=== PATIENT | female | born 1945 | race Caucasian/White ===

== ENCOUNTER → 2024-06-13 07:19 | Outpatient (CLI) | payer MEDICARE, SELFPAY | PROVIDERS: Visit Provider Physician Assistant Surgical | DX: R30.0 Dysuria (principal) | CPT/HCPCS: 87077; 87086; 87186 ==

== ENCOUNTER → 2024-07-11 14:11 | Outpatient (CLI) | payer OTHER, SELFPAY ==
--- NOTE | 2024-07-11 14:16 | DI.RAD.S_ITS ---
PROCEDURE: XR SHOULDER LT MIN 2V INDICATIONS: left shoulder pain, s/p fall TECHNIQUE: 3 views of the shoulder were acquired. COMPARISON: None. FINDINGS: Bones: No fractures or dislocations. Moderate acromioclavicular and glenohumeral joint degeneration. No suspicious bony lesions. Visualized ribs appear intact. Soft tissues: No suspicious soft tissue calcifications. IMPRESSION: No acute osseous abnormality. If pain persists with conservative management, consider repeat x-ray in 10-14 days or cross-sectional imaging. Dictated by: Yahir Cobian M.D. on 07/11/2024 at 14:40 Approved by: Yahir Cobian M.D. on 07/11/2024 at 14:46
== END ==
LOC: RAD 14:16
PROVIDERS: Referring Provider Family Medicine; Visit Provider Family Medicine
DX: M25.512 Pain in left shoulder (principal); M19.012 Primary osteoarthritis, left shoulder
CPT/HCPCS: 73030

== ENCOUNTER 2024-07-25 07:33 | Emergency (ER) | payer OTHER, SELFPAY ==
[2024-07-25] VITALS (8 sets, daily range): BP systolic 132–177; BP diastolic 69–81; PULSE 59–65; RESP 16–34; TEMP 36.6; O2SAT 99–100; BMI 18.0
[2024-07-25 07:58] LABS: Add Manual Diff / Slide Review NO; Basophils Absolute Auto 0 /uL (0-100); Eosinophils Absolute Auto 100 /uL (0-450); Hematocrit 37.4 % (36-46); Hemoglobin 12.8 g/dL (12.0-16.0); Lymphocytes Absolute Auto 800 /uL (1100-4500); Lymphocytes Percent Auto 31.8 % (25-40); Mean Corpuscular HGB Conc 34.3 % (30-36); Mean Corpuscular Volume 96.3 fL (80-100); Monocytes Absolute Auto 200 /uL (0-900); Neutrophils Absolute Auto 1500 /uL (1500-7000); Neutrophils Percent Auto 55.2 % (50-75); Platelet Count 140 X10^3/uL (150-400); Red Blood Cell Count 3.88 X10^6/uL (4.0-5.2); Red Cell Distribution Width 13.1 % (11.6-14.8); White Blood Cell Count 2.7 X10^3/uL (4.5-11.0)
[2024-07-25 08:03] LABS: Prothrombin Time 11.3 SECONDS (9.4-12.5)
[2024-07-25 08:09] LABS: Alanine Aminotransferase 43 IU/L (<35); Albumin 4.4 g/dL (3.5-5.0); Albumin Globulin Ratio 1.6 (1.0-2.8); Alkaline Phosphatase 49 U/L (38-126); Aspartate Aminotransferase 53 IU/L (14-36); BUN Creatinine Ratio 19.2 (6-22); Bilirubin Total 0.6 mg/dL (0.2-1.3); Blood Urea Nitrogen 15 mg/dL (7-17); Calcium 9.8 mg/dL (8.4-10.2); Carbon Dioxide 29 mmol/L (22-32); Chloride 103 mmol/L (98-107); Estimated Glomerular Filt Rate > 60 mL/min (>60); Globulin 2.7 g/dL (1.7-4.1); Glucose 98 mg/dL (80-110); HEMOLYSIS < 15 (0-50); Lipase 84 U/L (23-300); Potassium 3.4 mmol/L (3.4-5.1); Sodium 139 mmol/L (137-145); Total Protein 7.1 g/dL (6.3-8.2)
--- NOTE | 2024-07-25 08:14 | ED_ITS ---
HPI - Abdominal Pain General Chief Complaint: Abdominal Pain Stated Complaint: constipation, weight loss, sent by [facility] Time Seen by Provider: 07/25/24 07:35 History of Present Illness HPI narrative: this is a 79-year-old female with a history of osteoporosis osteoarthritis and hypothyroidism. She is complaining of upper abdominal pain that she describes as pressure and no bowel movement for 3 days. States that she does not have a history of chronic constipation but recently has developed constipation with hard stool. Also says that over the last month she has had an unintentional 10 lb weight loss. No changes in stool caliber and no GI bleeding. Recently has had decreased activity secondary to injuries. No previous abdominal surgeries remote history of colonoscopy that by her report did not have any concerning findings. Has not used any laxatives. No recent medication changes no medications that would be expected to cause constipation. No previous surgical history Related Data Home Medications Medication Instructions Recorded Confirmed levothyroxine 125 mcg tablet 0.125 mg PO QAM #30 tabs 02/03/16 07/25/24 (Synthroid) alendronate [Fosamax] PO 07/11/24 07/25/24 alendronate 70 mg tablet mg PO 07/25/24 07/25/24 levothyroxine 100 mcg tablet mcg PO DAILY 07/25/24 07/25/24 Previous Rx's Medication Instructions Recorded omeprazole 20 mg capsule,delayed 20 mg PO DAILY #30 caps 07/25/24 release sennosides 8.6 mg-docusate sodium 1 tab-cap PO BID #30 tabs 07/25/24 50 mg tablet (Senokot-S) Allergies Allergy/AdvReac Type Severity Reaction Status Date / Time No Known Drug Allergies Allergy Verified 07/25/24 07:31 Patient History Social History Smoking Status: Never smoker Smoking Status: Never smoker Exam Narrative Exam Narrative: thin female appears to be in no distress Initial Vital Signs Initial Vital Signs: Vital Signs Pulse Rate 64 07/25/24 07:40 Pulse Oximetry 100 07/25/24 07:40 Other: on rectal exam there is formed stool in the vault, not palpable if fecal impaction, brown but strongly guaiac positive Course Orders Ordered: ED Orders 07/25/24 07:45 EKG-12 Lead Stat 07/25/24 07:50 Complete Blood Count AUTO DIFF Stat Comprehensive Metabolic Panel Stat Lipase Stat Prothrombin Time INR Stat TSH [Thyroid Stimulating Hormone] Stat 07/25/24 08:24 CT abdomen pelvis w con Stat Ondansetron HCl (Ondansetron 4 Mg/2 Ml Inj) 4 mg IV NOW PRN PRN Reason: Nausea And Vomiting Ondansetron HCl (Ondansetron 4 Mg Odt) 4 mg PO NOW PRN PRN Reason: Nausea And Vomiting Discontinued Medications Sodium Biphosphate/Sodium Phosphate (Fleets Enema) 1 each ID NOW ONE Stop: 07/25/24 08:06 Last Admin: 07/25/24 09:23 Dose: 1 each Documented By: CTS Reevaluation(s) Reevaluation #1: did not have results with enema, given her overall reassuring presentation I do not think that we need to be more aggressive today. Vital Signs Vital signs: Vital Signs - 8 hr 07/25/24 07:40 07/25/24 07:43 07/25/24 07:59 Temperature 97.9 F Pulse Rate 64 65 59 L Respiratory Rate 16 24 Blood Pressure 177/81 H Pulse Oximetry 100 99 100 Oxygen Delivery Method Room Air 07/25/24 08:08 07/25/24 08:09 07/25/24 08:37 Temperature Pulse Rate 63 59 L Respiratory Rate 24 Blood Pressure 157/77 H Pulse Oximetry 100 100 Oxygen Delivery Method 07/25/24 08:38 07/25/24 08:38 07/25/24 10:04 Temperature Pulse Rate 61 60 Respiratory Rate 34 H 22 Blood Pressure 132/69 Pulse Oximetry 99 99 Oxygen Delivery Method Room Air MDM - Abdominal Pain Lab Data Lab results narrative: CBC notable for low white count and thrombocytopenia CMP shows minimal elevations in transaminases probably not clinically significant 07/25/24 07:50 07/25/24 07:50 Labs: Lab Results 07/25/24 Range/Units 07:50 WBC 2.7 L (4.5-11.0) X10^3/uL RBC 3.88 L (4.0-5.2) X10^6/uL Hgb 12.8 (12.0-16.0) g/dL Hct 37.4 (36-46) % MCV 96.3 (80-100) fL MCH 33.0 (26-34) PG MCHC 34.3 (30-36) % RDW 13.1 (11.6-14.8) % Plt Count 140 L (150-400) X10^3/uL Neut % (Auto) 55.2 (50-75) % Lymph % (Auto) 31.8 (25-40) % [place] % (Auto) 9.0 (3-14) % Eos % (Auto) 3.0 (2-4) % Baso % (Auto) 1.0 (0-2) % Neut # (Auto) 1500 (0764-4769) /uL Lymph # (Auto) 800 L (1104-7997) /uL [place] # (Auto) 200 (0-900) /uL Eos # (Auto) 100 (0-450) /uL Baso # (Auto) 0 (0-100) /uL PT 11.3 (9.4-12.5) SECONDS INR 1.0 (0.9-1.3) Sodium 139 (137-145) mmol/L Potassium 3.4 (3.4-5.1) mmol/L Chloride 103 (98-107) mmol/L Carbon Dioxide 29 (22-32) mmol/L BUN 15 (7-17) mg/dL Creatinine 0.78 (0.52-1.04) mg/dL Estimated GFR > 60 (>60) mL/min BUN/Creatinine Ratio 19.2 (6-22) Glucose 98 (80-110) mg/dL Calcium 9.8 (8.4-10.2) mg/dL Total Bilirubin 0.6 (0.2-1.3) mg/dL AST 53 H (14-36) IU/L ALT 43 H (<35) IU/L Alkaline Phosphatase 49 (38-126) U/L Total Protein 7.1 (6.3-8.2) g/dL Albumin 4.4 (3.5-5.0) g/dL Globulin 2.7 (1.7-4.1) g/dL Albumin/Globulin Ratio 1.6 (1.0-2.8) Lipase 84 (23-300) U/L TSH 0.249 L (0.47-4.68) uIU/mL Imaging Data CT scan - abdomen/pelvis: My Impression: independently reviewed CT abdomen and pelvis, no acute finding, excessive stool present Radiologist's Impression: [address] [address] [address] Scan Report Signed Patient: Monae Ruffin MR#: [id number] : 1945 Acct:[id number] Age/Sex: 79 / F Date of Service: 07/25/24 Loc: ED Accession Number: [id number] Procedure: CT abdomen pelvis w con Ordering Provider: Brent Peterson MD PROCEDURE: CT ABDOMEN PELVIS W CON INDICATIONS: abd pain and giac positive stool TECHNIQUE: After the administration of intravenous contrast, axial sections acquired from the lung bases to the pubic symphysis. Coronal and sagittal reformats were performed. For radiation dose reduction, the following was used: automated exposure control, adjustment of mA and/or kV according to patient size. COMPARISON: None. FINDINGS: Image quality: Portions of the lower pelvis are suboptimally evaluated secondary to metallic streak artifact from hip arthroplasty. Lower Chest: No significant findings. ABDOMEN: Liver: Steatosis. Simple hepatic cysts multiple Gallbladder: No radiopaque gallstones or wall thickening. Biliary ducts: No biliary dilation. Pancreas: No ductal dilation. Spleen: Size is within normal limits. Adrenal Glands: No adrenal nodules. Kidneys and Ureters: No hydronephrosis. No solid mass. No complex renal cystic lesion which requires follow up. Stomach and Bowel: Normal colonic caliber, without significant wall thickening. Moderate colonic stool. Diverticula without inflammatory change Peritoneum: No abnormal intraperitoneal fluid. No free air. Ventral Wall: No significant ventral hernia. Abdominal Nodes: No retroperitoneal or mesenteric adenopathy by size criteria. Vessels: Aorta and inferior vena cava are normal in size. PELVIS: Pelvic Organs: Unremarkable. Bladder: No bladder wall thickening, accounting for underdistention. Pelvic Nodes: No enlarged lymph nodes. Miscellaneous: No inguinal hernias are seen. Bones: No aggressive osseous abnormality. IMPRESSION: Prominent colonic stool. Diverticulosis. No visualized inflammatory change. Dictated by: Lona Garcia M.D. on 07/25/2024 at 8:39 Approved by: Lona Garcia M.D. on 07/25/2024 at 8:43 ECG Data Interpretation: ECG shows normal sinus rhythm with prolonged ID interval, possible old septal infarct no acute changes MDM Narrative Medical decision making narrative: 79-year-old female complaining of constipation with no bowel movement x3 days. Also reports she has had a recent weight loss of 10 lb. She does not appear to have a bowel obstruction and she does not have a fecal impaction. Abdominal exam is reassuring although she reported some upper abdominal pain. Workup does not suggest acute gastro intestinal hemorrhage, bowel obstruction, appendicitis diverticulitis or other acute process requiring intervention today. She is noted to have guaiac-positive stool that are normal in color she has a normal hemoglobin and normal MCV. Has a history of hypothyroidism on thyroid supplementation, mildly low TSH suggest that she is not hypothyroid. I started on omeprazole given her guaiac-positive stool. I started her on Senokot and fiber for constipation and recommended that she follow up with primary care Discharge Plan Departure Patient Disposition: Home Clinical Impression: Guaiac positive stools Abdominal pain Qualifiers: Abdominal location: epigastric Qualified Code(s): R10.13 - Epigastric pain Constipation Qualifiers: Constipation type: unspecified constipation type Qualified Code(s): K59.00 - Constipation, unspecified Activity Restrictions/Additional Instructions: emergency department evaluation today is reassuring. No serious cause for abdominal pain and constipation and found. I think it is safe for you to go home. We did notice that there is occult blood in your stool. I recommend you take omeprazole 20 mg daily for this. With respect to your constipation, . I have sent a prescription for a combination stool softener and stimulant that you can use to improve bowel function. once you are stooling regularly, you can add Metamucil or similar fiber supplement daily. It is important that you get adequate fluids always and I recommend trying to walk as much as possible to stimulate bowel function. your thyroid stimulating hormone is a little low, this would not be expected to reflect low active thyroid hormone levels. I recommend he follow up with your primary care provider regarding this as well as guaiac-positive stools with normal hemoglobin, slightly low platelets and slightly low white blood cell count. If you are having increasing abdominal pain, fevers, vomiting, passing black stool or bright red blood per rectum recheck in the emergency department. Follow up soon with your primary care provider. Prescriptions: New omeprazole 20 mg capsule,delayed release(DR/EC) 20 mg PO DAILY Qty: 30 0RF sennosides-docusate sodium [Senokot-S] 8.6-50 mg tablet 1 tab-cap PO BID Qty: 30 0RF Rx Instructions: Take 1 tablet twice daily until stooling regularly. Then you can take 1 tablet daily as needed for daily bowel movement No Action levothyroxine 100 mcg tablet PO DAILY alendronate 70 mg tablet PO levothyroxine [Synthroid] 125 MCG tablet 0.125 mg PO QAM Qty: 30 alendronate [Fosamax] PO Referrals: Scot Hobbs MD [Primary Care Provider] - Stand Alone Forms: Patient Portal/API/Survey
--- NOTE | 2024-07-25 08:24 | DI.CT.S_ITS ---
PROCEDURE: CT ABDOMEN PELVIS W CON INDICATIONS: abd pain and giac positive stool TECHNIQUE: After the administration of intravenous contrast, axial sections acquired from the lung bases to the pubic symphysis. Coronal and sagittal reformats were performed. For radiation dose reduction, the following was used: automated exposure control, adjustment of mA and/or kV according to patient size. COMPARISON: None. FINDINGS: Image quality: Portions of the lower pelvis are suboptimally evaluated secondary to metallic streak artifact from hip arthroplasty. Lower Chest: No significant findings. ABDOMEN: Liver: Steatosis. Simple hepatic cysts multiple Gallbladder: No radiopaque gallstones or wall thickening. Biliary ducts: No biliary dilation. Pancreas: No ductal dilation. Spleen: Size is within normal limits. Adrenal Glands: No adrenal nodules. Kidneys and Ureters: No hydronephrosis. No solid mass. No complex renal cystic lesion which requires follow up. Stomach and Bowel: Normal colonic caliber, without significant wall thickening. Moderate colonic stool. Diverticula without inflammatory change Peritoneum: No abnormal intraperitoneal fluid. No free air. Ventral Wall: No significant ventral hernia. Abdominal Nodes: No retroperitoneal or mesenteric adenopathy by size criteria. Vessels: Aorta and inferior vena cava are normal in size. PELVIS: Pelvic Organs: Unremarkable. Bladder: No bladder wall thickening, accounting for underdistention. Pelvic Nodes: No enlarged lymph nodes. Miscellaneous: No inguinal hernias are seen. Bones: No aggressive osseous abnormality. IMPRESSION: Prominent colonic stool. Diverticulosis. No visualized inflammatory change. Dictated by: Lona Garica M.D. on 07/25/2024 at 8:39 Approved by: Lona Garcia M.D. on 07/25/2024 at 8:43
--- NOTE | 2024-07-25 08:35 | EKG_ITS ---
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
[2024-07-25] MEDS: FLEETS ENEMA 1 EACH PR (09:23)
[2024-07-25 09:41] LABS: Thyroid Stimulating Hormone 0.249 uIU/mL (0.47-4.68)
== END 2024-07-25 10:18 | disposition home or self-care (01) ==
PROVIDERS: Emergency Provider Emergency Medicine; PCP Family Medicine
DX: R10.13 Epigastric pain (principal); K59.00 Constipation, unspecified; R19.5 Other fecal abnormalities; R00.1 Bradycardia, unspecified; I44.0 Atrioventricular block, first degree
CPT/HCPCS: 36415; 74177; 80053; 83690; 84443; 85025; 85610; 93005; 99283; 99284; 99285; Q9967

== ENCOUNTER → 2024-08-03 10:54 | Outpatient (CLI) | payer MEDICARE, SELFPAY ==
[2024-08-04 15:08] LABS: Fecal Immunochemical Test Negative (Negative)
== END ==
LOC: LAB 10:58
PROVIDERS: PCP Family Medicine; Referring Provider Family Medicine; Visit Provider Family Medicine
DX: Z12.11 Encounter for screening for malignant neoplasm of colon (principal)
CPT/HCPCS: 82274